=== PATIENT | male | born 1995 | race Caucasian/White ===

== ENCOUNTER 2017-12-02 13:27 | Emergency (ER) | payer OTHER | END 2017-12-02 15:03 | disposition home or self-care (01) | LOC: M ED 13:27 | DX: S43.52XA Sprain of left acromioclavicular joint, initial encounter (principal); X58.XXXA Exposure to other specified factors, initial encounter; Y92.89 Other specified places as the place of occurrence of the external cause; Y93.67 Activity, basketball | CPT/HCPCS: 73030 ==